=== PATIENT | female | born 1960 | race Caucasian/White ===

== ENCOUNTER 2023-04-19 09:25 | Outpatient (REF) | payer OTHER, SELFPAY ==
[2023-04-19 09:38] LABS: MANUAL DIFF FLAG NO
[2023-04-19 09:58] LABS: Basophils Percent Auto 0.2 % (0-2); Eosinophils Percent Auto 0.9 % (0-4); Hematocrit 39.3 % (37.0-47.0); Hemoglobin 13.2 g/dl (12.0-16.0); Imm Gran Abs Auto 0.01 X10*3/uL (0.00-0.03); Imm Gran Pct Auto 0.2 % (0.0-0.4); Lymphocytes Absolute Auto 1.1 X10*3/uL (1.2-4.9); Lymphocytes Percent Auto 23.9 % (20-40); Mean Corpuscular HGB Conc 33.6 g/dl (31.0-35.0); Mean Corpuscular Hemoglobin 29.5 pg (27.0-33.0); Mean Corpuscular Volume 87.7 fL (80.0-98.0); Mean Platelet Volume 9.5 fL (9.4-12.3); Monocytes Absolute Auto 0.4 X10*3/uL (0.1-1.2); Monocytes Percent Auto 9.1 % (2-11); Neutrophils Absolute Auto 2.9 x10*3/uL (2.0-8.3); Neutrophils Percent Auto 65.7 % (45-73); Platelet Count 213 X10*3/uL (160-400); Red Blood Count 4.48 X10*6/uL (4.20-5.50); Red Cell Distribution Width 12.9 % (11.0-16.0); White Blood Count 4.4 X10*3/uL (4.8-10.8)
[2023-04-19 10:36] LABS: Alanine Aminotransferase 33 U/L (0-31); Albumin Level 4.3 g/dL (3.5-5.0); Alkaline Phosphatase 62 U/L (39-117); Aspartate Amino Transferase 26 U/L (5-31); Bilirubin Direct 0.6 mg/dL (0.0-0.5); Bilirubin Total 2.8 mg/dL (0.0-1.0); Blood Urea Nitrogen 8 mg/dL (9-16); Estimated Glomerular Filt Rate > 60; Lipase 40 U/L (8-78); Total Protein 6.7 g/dL (6.5-8.0)
== END 2023-04-19 09:26 | disposition home or self-care (01) ==
LOC: HO.LAB 09:25
PROVIDERS: PCP Family Medicine; Visit Provider Internal Medicine Gastroenterology
DX: R10.84 Generalized abdominal pain (principal)
CPT/HCPCS: 36415; 80076; 82565; 83690; 84520; 85025

== ENCOUNTER 2023-05-16 06:23 | Outpatient (REF) | payer OTHER, SELFPAY ==
--- NOTE | ~2023-05-16 | CT_ITS ---
EXAMINATION: CT ABDOMEN AND PELVIS WITH CONTRAST CLINICAL INFORMATION: Change in bowel habits. COMPARISON: None available. TECHNIQUE: Multidetector volumetric images were obtained from the superior aspect of the liver through the pubic symphysis following administration 85 mL of Omnipaque 350 intravenous contrast. Sagittal and coronal reformatted images were obtained on the technologist's workstation. Oral contrast: No. This CT examination was performed using dose optimization techniques as appropriate, variously including the following: *Automated exposure control *Adjustment of mA and/or kV according to patient size (this includes techniques or standardized protocols for targeted exams where dose is matched to indication/reason for exam; i.e. extremities or head) *Use of iterative reconstruction technique DLP: 264 mGy-cm FINDINGS: LUNG BASES: The visualized lung bases are unremarkable. LIVER, GALLBLADDER, AND BILIARY TREE: The liver is normal in size, shape, and attenuation. No focal hepatic lesion or biliary ductal dilatation is present. The gallbladder is unremarkable with no evidence of radiopaque gallstones, gallbladder wall thickening, or obvious pericholecystic inflammatory changes. PANCREAS: Unremarkable. SPLEEN: Unremarkable. A small punctate calcification is seen along the splenic capsule. ADRENAL GLANDS: Unremarkable. KIDNEYS AND URETERS: The kidneys are normal in size, shape, and attenuation. No hydronephrosis, hydroureter, or calculi seen. No perinephric stranding. BLADDER: Unremarkable. GASTROINTESTINAL TRACT: There is a large stool burden present in the rectosigmoid. There has been resection of a large portion of the left colon with a colonic anastomosis seen in the mid pelvis (3:58-61). There is no evidence of bowel obstruction. The small bowel is unremarkable. ABDOMINAL WALL: No significant hernia is appreciated. LYMPH NODES: Normal. VASCULAR: Unremarkable. PELVIC VISCERA: An anteverted uterus is present with calcified fundal fibroids. An abnormal adnexal mass is not seen. No free intraperitoneal air is detected. OSSEOUS STRUCTURES: There is a biconvex thoracolumbar scoliosis seen with degenerative changes in the spine, most prominent at L4-L5 and L5-S1. CT/CT abdomen pelvis w IV con IMPRESSION: 1. Large stool burden in the rectosigmoid. 2. Status post partial left colectomy. No evidence of bowel obstruction. 3. Calcified uterine fibroids. 4. Biconvex thoracolumbar scoliosis with degenerative changes in the spine. Fleischner guidelines were followed.
[2023-05-16] MEDS: iohexoL 350 MG/ML 100 ML INFUS..BTL IV (08:53)
[2023-05-16] MEDS: Barium Sulfate Oral (Berry) 450 ML ORAL.SUSP 900 ML PO (08:54)
== END 2023-05-16 06:24 | disposition home or self-care (01) ==
LOC: HO.CT 06:23
PROVIDERS: PCP Family Medicine; Visit Provider Orthopaedic Surgery
DX: R10.84 Generalized abdominal pain (principal)
CPT/HCPCS: 74177; Q9967

== ENCOUNTER 2023-07-27 09:24 | Outpatient (REF) | payer OTHER, SELFPAY ==
[2023-07-27 11:28] LABS: Alanine Aminotransferase 17 U/L (0-31); Albumin Level 4.1 g/dL (3.5-5.0); Alkaline Phosphatase 72 U/L (39-117); Aspartate Amino Transferase 18 U/L (5-31); Bilirubin Direct 0.6 mg/dL (0.0-0.5); Bilirubin Total 1.7 mg/dL (0.0-1.0); Total Protein 6.5 g/dL (6.5-8.0)
== END 2023-07-27 09:25 | disposition home or self-care (01) ==
LOC: HO.LAB 09:24
PROVIDERS: PCP Family Medicine; Visit Provider Internal Medicine Gastroenterology
DX: R79.89 Other specified abnormal findings of blood chemistry (principal)
CPT/HCPCS: 36415; 80076

== ENCOUNTER 2023-12-14 06:33 | Day surgery (SDC) | payer BC, SELFPAY ==
[2023-12-12 11:36] VITALS: BMI 21.6
--- NOTE | 2023-12-13 10:20 | P.CONAN_ITS ---
Documented by User: Dona Goldstein NP 12/13/23 10:21 HPI - Anesthesia Eval Consult details Narrative: 63yo F for Upper Endoscopy [facility] Past Medical History Medical History Depression Murillo's esophagus Hx of flexible sigmoidoscopy Hypothyroid GERD (gastroesophageal reflux disease) Surgical History Surgical History Hx of ventral hernia repair Hx of nasal septoplasty Hx of tubal ligation History of appendectomy Hx of colectomy H/O colonoscopy History of esophagogastroduodenoscopy (EGD) Social History Social History Patient Tobacco Use Status: Never used Tobacco Are you DNR?: No Advance Directives: No Advance Directives Information Provided: Yes Nutrition Risks: No Nutritional Risk Meds Allergies Allergy/AdvReac Type Severity Reaction Status Date / Time No Known Allergies Allergy Verified 12/14/23 07:10 [No Known Allergies*] Home Medications Medication Instructions Recorded Confirmed Last Taken Type cetirizine 10 mg tablet (Zyrtec) 10 mg PO DAILY 12/12/23 12/12/23 Unknown History dicyclomine 20 mg tablet 20 mg PO QID 12/12/23 12/12/23 Unknown History hydrochlorothiazide 12.5 mg capsule 12.5 mg PO DAILY 12/12/23 12/12/23 Unknown History levothyroxine 100 mcg tablet 100 mcg PO DAILY 12/12/23 12/12/23 12/14/23 History lorazepam 0.5 mg tablet 0.5 mg PO DAILY PRN Anxiety 12/12/23 12/12/23 Unknown History magnesium oxide 500 mg tablet 500 mg PO DAILY 12/12/23 12/12/23 Unknown History melatonin 3 mg tablet 3 mg PO BEDTIME 12/12/23 12/12/23 Unknown History multivitamin 1 tab PO DAILY 12/12/23 12/12/23 Unknown History pantoprazole 40 mg tablet,delayed 40 mg PO DAILY 12/12/23 12/12/23 Unknown H istory release zolpidem 10 mg tablet 10 mg PO BEDTIME 12/12/23 12/12/23 Unknown History Exam Height,Weight and Vital Signs: Height 5 ft 3.75 in Weight 56.699 kg Assessment and Plan Assessment Anesthesia Assessment: Chart Reviewed Documented by User: Ирина Felix MD 12/14/23 07:46 PMFSH Past Medical History Medical History Depression Murillo's esophagus Hx of flexible sigmoidoscopy Hypothyroid GERD (gastroesophageal reflux disease) Surgical History Surgical History Hx of ventral hernia repair Hx of nasal septoplasty Hx of tubal ligation History of appendectomy Hx of colectomy H/O colonoscopy History of esophagogastroduodenoscopy (EGD) History of Problems with Anesthesia: No Social History Social History Patient Tobacco Use Status: Never used Tobacco Are you DNR?: No Advance Directives: No Advance Directives Information Provided: Yes Nutrition Risks: No Nutritional Risk Meds Allergies Allergy/AdvReac Type Severity Reaction Status Date / Time No Known Allergies Allergy Verified 12/14/23 07:10 [No Known Allergies*] Home Medications Medication Instructions Recorded Confirmed Last Taken Type cetirizine 10 mg tablet (Zyrtec) 10 mg PO DAILY 12/12/23 12/12/23 Unknown Histo ry dicyclomine 20 mg tablet 20 mg PO QID 12/12/23 12/12/23 Unknown History hydrochlorothiazide 12.5 mg capsule 12.5 mg PO DAILY 12/12/23 12/12/23 Unknown History levothyroxine 100 mcg tablet 100 mcg PO DAILY 12/12/23 12/12/23 12/14/23 History lorazepam 0.5 mg tablet 0.5 mg PO DAILY PRN Anxiety 12/12/23 12/12/23 Unknown History magnesium oxide 500 mg tablet 500 mg PO DAILY 12/12/23 12/12/23 Unknown History melatonin 3 mg tablet 3 mg PO BEDTIME 12/12/23 12/12/23 Unknown History multivitamin 1 tab PO DAILY 12/12/23 12/12/23 Unknown History pantoprazole 40 mg tablet,delayed 40 mg PO DAILY 12/12/23 12/12/23 Unknown History release zolpidem 10 mg tablet 10 mg PO BEDTIME 12/12/23 12/12/23 Unknown History Exam Airway Mallampati Class: II TM Dist: >3cm Neck ROM: Full Loose/Missing/Broken Teeth: No Heart: RRR Lungs: CTA Assessment and Plan Assessment Anesthesia Assessment: Anesthesia Plan Discussed Final Anesthetic Review History of Problems with Anesthesia: No NPO: Yes ASA Class: II Final Preanesthetic Review: Meds/Allgs Chart Reviewed, Consent Obtained/Reviewed and Anes Risks/Benef Reviewed Patient Risk: Low Procedure Risk: Intermediate Anesthetic Plan Anesthetic Plan: MAC: Disposition: Standard PACU
[2023-12-14 06:54] VITALS: BMI 21.4
[2023-12-14] MEDS: Lactated Ringers 1,000 ML 100 ML IVCONT (07:01)
[2023-12-14 07:09] VITALS: BP 125/61; PULSE 64; RESP 18; TEMP 36.6; O2SAT 97
--- NOTE | 2023-12-14 07:26 | MHC.SHP ---
Pre-Procedural Eval Section A Date of Service: 12/14/23 Section B Chief Complaint: Murillo's esophagus without dysplasia Details of Present Illness: see H&P no changes Relevant Family History (Specify if Yes): No Relevant Social History: None Present Medications: see Short Stay Collaborative assessment Medical History: No relevant PMH History of Previous Operations: No relevant previous surgery Allergies: Allergies Allergy/AdvReac Type Severity Reaction Status Date / Time No Known Allergies Allergy Verified 12/14/23 07:10 [No Known Allergies*] Review of Systems Sugical H&P ROS: Negative: Constitution, Cardiovascular, Respiratory, Neurological, Psychiatric, Hem-Onc, Allergic/Immunologic, Gastrointestinal, Genitourinary, Musculoskeletal, Integumentary, Endocrine and Eyes/Ears/Nose/Throat Exam Surgical H&P Exam: Normal: HEENT, Normal: Heart, Normal: Lungs, Normal: Extremities, Normal: Abdomen, Normal: Skin and Normal: Neurological Plan Diagnosis/Plan: Unchanged I have reviewed the history and physical and performed a pertinent physical examination on my patient. No changes have occurred unless specified. Time Spent With Patient Time: Total time managing care of this patient today ____ minutes.
[2023-12-14 07:52] VITALS: BP 94/50; PULSE 72; RESP 12; TEMP 36.2; O2SAT 98
[2023-12-14 08:07] VITALS: BP 125/69; PULSE 69; RESP 18; TEMP 36.2; O2SAT 98
--- NOTE | 2023-12-14 08:11 | OP_ITS ---
DATE OF SERVICE: 12/14/2023 SURGEON: Fuentes Davis MD INDICATIONS: Murillo's esophagus. PREOPERATIVE DIAGNOSIS: POSTOPERATIVE DIAGNOSIS: PROCEDURE PERFORMED: Upper endoscopy with biopsy. ESTIMATED BLOOD LOSS: COMPLICATIONS: ANESTHESIA: Medications, monitored anesthesia care. ASSISTANTS: SPECIMENS: DESCRIPTION OF PROCEDURE: History and physical performed. The risks and benefits of the procedure were explained to the patient. Informed consent was obtained. The patient was placed in left lateral decubitus position. The Olympus video gastroscope was introduced into the esophagus, stomach, and duodenum. Examination was performed. The scope was removed. She tolerated the procedure well and was taken to recovery room in stable condition. FINDINGS: Esophagus: There was an irregular EG junction without raised lesions or ulcerated areas. This was biopsied. There was a small hiatal hernia. Stomach: Stomach showed some benign-appearing polyps in the body and fundus, less than 10 mm. There was no gastritis. There was no ulcer. Duodenum: The bulb and 2nd portion were normal. IMPRESSION: Murillo's esophagus. RECOMMENDATION: Follow up the biopsy results. MD PAULO Coats/JEET / [id number] MTDD
== END 2023-12-14 08:39 | disposition home or self-care (01) ==
PROVIDERS: PCP Family Medicine; Visit Provider Internal Medicine Gastroenterology
PROC: 0DJ08ZZ Inspection of Upper Intestinal Tract, Via Natural or Artificial Opening Endoscopic (ICD-10-PCS; CPT 43235; principal; 2023-12-14 07:30)
DX: K22.70 Barrett's esophagus without dysplasia (principal); K31.7 Polyp of stomach and duodenum; K44.9 Diaphragmatic hernia without obstruction or gangrene; K21.9 Gastro-esophageal reflux disease without esophagitis; K58.0 Irritable bowel syndrome with diarrhea; Z79.899 Other long term (current) drug therapy; Z90.49 Acquired absence of other specified parts of digestive tract; Z98.890 Other specified postprocedural states
CPT/HCPCS: 43239; 88305; 88313; J1596; J2250; J2704